=== PATIENT | female | born 1940 | race Two or more races ===

== ENCOUNTER 2022-02-28 18:45 | Emergency (ER) | payer OTHER ==
[~2022-02-28] VITALS: Ht 160 cm; Wt 56.7 kg
== END 2022-02-28 22:44 | disposition home or self-care (01) ==
LOC: ER 18:45
DX: S01.92XA Laceration with foreign body of unspecified part of head, initial encounter (principal); W18.30XA Fall on same level, unspecified, initial encounter; Y93.9 Activity, unspecified; Y92.019 Unspecified place in single-family (private) house as the place of occurrence of the external cause

== ENCOUNTER 2025-03-24 11:28 | Outpatient (CLI) | payer OTHER | END 2025-03-24 11:29 | disposition home or self-care (01) | LOC: NUCLEAR 11:28 | PROVIDERS: ATTEND Family Medicine | DX: M86.9 Osteomyelitis, unspecified (principal) | CPT/HCPCS: 78804; A9556 ==